=== PATIENT | female | born 1990 | race African-American/Black ===

== ENCOUNTER 2017-05-20 11:26 | Emergency (ER) | payer MEDICAID, OTHER ==
[~2017-05-20] VITALS: Ht 165.1 cm; Wt 81.8 kg
[~2017-05-20 11:26] MED LIST: ARIP10TA8 PO; FOLI1TAB15 PO; MULT-68 PO; SERT50TA12 PO; THIA100T13 PO
[2017-05-20] MEDS ORDERED: IBUPROFEN 800 MG TABLET PO ONE (13:00)
[2017-05-20 14:09] VITALS: BP 128/78
== END 2017-05-20 14:12 | disposition home or self-care (01) ==
LOC: EMS 11:28
DX: M77.9 Enthesopathy, unspecified (principal); M25.422 Effusion, left elbow
CPT/HCPCS: 99284